=== PATIENT | female | born 1965 | race Caucasian/White ===

== ENCOUNTER 2019-08-09 16:22 | Outpatient (CLI) | payer BC ==
--- NOTE | 2019-08-09 16:43 | RAD ---
XR Chest Pa Lat STANDARD History: Chronic cough Comparison: Radiograph 2011 Findings: Abnormal right perihilar mass. Left lung is relatively clear. No pneumothorax. No acute oss eous abnormality. Impression: Abnormal right perihilar mass/consolidation. This concerning for underlying malignancy al though a central pneumonia could have a similar appearance. CT of the chest recommended with contrast. Code: CR. [facility], [facility], was notified of findings via telephone.
== END 2019-08-09 16:23 | disposition home or self-care (01) ==
LOC: BICRAD 16:22
PROVIDERS: ATTEND Family Medicine
DX: R05 Cough (principal)
CPT/HCPCS: 36415; 71046; 85025; 87798

== ENCOUNTER 2019-08-11 13:14 | Outpatient (CLI) | payer BC ==
[~2019-08-11 13:14] MED LIST: Iopamidol-370 76% 500 ML 1 ML ONE
--- NOTE | 2019-08-11 15:03 | CT ---
CT CHEST WITH IV CONTRAST: HISTORY: Mass in the right lung, abnormal chest x-ray of 08/09/2019. FINDINGS: There are enlarged lymph nodes in the superior mediastinum measuring up to 12 mm. There is soft tiss ue density with occlusion of the right middle lobe bronchus with post obstructive atelectatic change in the right middle lobe. There are tiny centrilobular lung nodules in the adjacent right upper lobe . No pleural or pericardial effusions are seen. No significant hilar or axillary lymphadenopathy is seen. Upper abdominal tomograms are unremarkable. There are degenerative changes in the spine. No osteolytic or osteoblastic lesions are noted. IMPRESSION: 1. Findings suspicious for endobronchial malignancy in the right middle lobe with postobstructive at electatic change. Bronchoscopy should be performed. 2. Superior mediastinal lymphadenopathy and micronodularity in the right upper lobe are suspicious f or metastatic disease. POS: OFF
== END 2019-08-11 13:15 | disposition home or self-care (01) ==
LOC: BICCT 13:14
PROVIDERS: ATTEND Family Medicine
DX: R91.8 Other nonspecific abnormal finding of lung field (principal); R59.0 Localized enlarged lymph nodes; R91.1 Solitary pulmonary nodule
CPT/HCPCS: 71260; Q9967